=== PATIENT | female | born 1970 | race Caucasian/White ===

== ENCOUNTER 2017-02-09 08:53 | Day surgery (SDC) | payer BC ==
[2017-02-08 11:03] VITALS: BMI 18.8
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
[2017-02-09] MEDS ORDERED: oxyCODONE HCL 5 MG TABLET PO PRN (11:56)
[2017-02-09] MEDS ORDERED: ONDANSETRON 4 MG/2 ML VIAL IVPUSH PRN (11:56)
[2017-02-09] MEDS ORDERED: LACTATED RINGERS SOLUTION 1,000 ML IV SCH (12:00)
[2017-02-09] MEDS ORDERED: DEXAMETHASONE SOD PHOSPHATE 4 MG/1 ML VIAL ONE (12:12)
[2017-02-09] MEDS ORDERED: MIDAZOLAM HCL 2 MG/2 ML SINGLE DOSE VIAL ONE (12:12)
[2017-02-09] MEDS ORDERED: PROPOFOL 20 ML ONE (12:12)
[2017-02-09] MEDS ORDERED: LIDOCAINE HCL/PF 2% SDV 5ML VIAL ONE (12:12)
[2017-02-09] MEDS ORDERED: IBUPROFEN 800 MG/8 ML IJ IVPB ONE (13:11)
[2017-02-09 14:23] VITALS: TEMP 97.7
--- NOTE | 2017-02-09 14:25 | OP ---
Operative Note - Note: Operative Date: 02/09/17 Pre-Operative Diagnosis: Menometrorrhagia Operation: Hysteroscopy, D&C, polypectomy Findings: Fundal endometrial polyp ~1cm Post-Operative Diagnosis: Other (endometrial polyp) Surgeon: Stephon Dodge Anesthesiologist/SUBSORTER: Kelsie Ricketts Anesthesia: General Specimens Removed: Endometrial curettings, endometrial polyp Estimated Blood Loss (mls): 5 Drains, Volume Out (mls): 0 Blood Volume Replaced (mls): 0 Fluid Volume Replaced (mls): 400 Operative Report Dictated: Yes
[2017-02-09 14:37] VITALS: BP 103/53; PULSE 60
--- NOTE | 2017-02-10 14:44 | OP ---
DATE OF OPERATION: 02/09/2017 PREOPERATIVE DIAGNOSIS: Menometrorrhagia. POSTOPERATIVE DIAGNOSIS: Menometrorrhagia and endometrial polyp. SURGERY: Hysteroscopy, dilation and curettage, polypectomy. SURGEON: Al Bustamante MD ANESTHESIOLOGIST: Kelsie Ricketts MD ANESTHESIA: General. INTRAVENOUS FLUIDS: Crystalloid 400 mL. ESTIMATED BLOOD LOSS: 5 mL. COMPLICATIONS: None. PATHOLOGY: Endometrial curettings and uterine polyp. INTRAOPERATIVE FINDINGS: Examination under anesthesia revealed a small uterus with no pelvic or adnexal masses. Hysteroscopy revealed a small fundal endometrial polyp approximately 1 cm in size. There were no other lesions noted. The polyp was removed without complications. PROCEDURE: The patient was met preoperatively. Risks, benefits, and alternatives of surgery were discussed in detail. All questions were answered. The patient was then brought to the OR with the IV running. She was placed on the surgical table in the supine position. The anesthesia was achieved without difficulty. The patient was then placed in a dorsal lithotomy position using adjustable Raheem stirrups. She was examined under anesthesia with the findings as described above. The patient was then prepped and draped in the usual sterile fashion. A timeout procedure was conducted as per standard protocol. The surgeons then proceeded with the operation. A sterile speculum was introduced inside the vagina, with good visualization of the cervix. The cervix was grasped with a single-tooth tenaculum. No dilation of the cervical canal was necessary. A hysteroscope was gently introduced into the uterine cavity, with the findings as described above. The hysteroscope was used to remove the endometrial polyp without complications. The hysteroscope was then removed and sharp uterine curettage was performed. The tissue was sent to Pathology for evaluation. A hysteroscope was once again introduced into the uterine cavity, and a normal uterine cavity was noted with good hemostasis. All instruments were then removed from the patient. Sponge, lap, and instrument counts were correct. Good hemostasis was confirmed, and the patient was transferred to recovery room awake and in stable condition. AL BUSTAMANTE M.D. [id number]
--- NOTE | 2017-02-12 16:58 | PATH ---
Surgical Pathology Report Patient Name: MELONY RUSSELL [facility]. Rec. #: [id number] /Age/Gender: 1970 (Age: 46) / F Account: [id number] Location: [facility] SUR[facility]ICAL Taken: 02/09/2017 Received: 02/09/2017 Reported: 02/12/2017 Physicians: Stephon Dodge M.D. Specimen(s) Received ENDOMETRIAL CURETTINGS AND POLYPS Clinical History Vaginal bleeding Final Diagnosis ENDOMETRIAL CURETTINGS, POLYP, DILATATION AND CURETTAGE: POLYPOID PROLIFERATIVE ENDOMETRIUM SUGGESTIVE OF ENDOMETRIAL POLYP, LOWER UTERINE SEGMENT, SUPERFICIAL MYOMETRIUM AND BENIGN ENDOCERVICAL TISSUE. Electronically Signed Nani Andrade M.D. Gross Description Received in formalin labeled "endometrial curettings and polyp," is a 4.0 x 2.2 x 0.4 cm aggregate of funes soft tissue fragments admixed with blood clot. The formalin is filtered and the specimen is entirely submitted in 2 cassettes. /02/09/2017 saudi02/09/2017
== END 2017-02-09 15:13 | disposition home or self-care (01) ==
LOC: JASU-SURG 08:53
PROVIDERS: ATTEND Obstetrics & Gynecology
PROC: 0UB98ZX Excision of Uterus, Via Natural or Artificial Opening Endoscopic, Diagnostic (ICD-10-PCS; principal; 2017-02-09 09:00)
DX: N92.1 Excessive and frequent menstruation with irregular cycle (principal); N84.0 Polyp of corpus uteri
CPT/HCPCS: 84703; 86850; 86900; 86901; 88305-TC; 94760

== ENCOUNTER 2019-02-14 09:50 | Day surgery (SDC) | payer BC, OTHER ==
[2019-02-11 10:14] VITALS: BMI 18.3
[2019-02-14] MEDS ORDERED: PROPOFOL 20 ML ONE ×4 (13:13→13:14)
[2019-02-14] MEDS ORDERED: MIDAZOLAM HCL 2 MG/2 ML SINGLE DOSE VIAL ONE (13:14)
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
[2019-02-14] MEDS ORDERED: KETAMINE HCL 200 MG/20 ML VIAL ONE (13:37)
[2019-02-14] MEDS ORDERED: ceFAZolin SODIUM 1 GM VIAL IVPB ONE (13:38)
[2019-02-14] MEDS ORDERED: oxyCODONE HCL 5 MG TABLET PO PRN (13:39)
[2019-02-14] MEDS ORDERED: ONDANSETRON 4 MG/2 ML VIAL IVPUSH PRN (13:39)
[2019-02-14] MEDS ORDERED: LACTATED RINGERS SOLUTION 1,000 ML IV SCH (13:45)
[2019-02-14] MEDS ORDERED: HYDROmorphone HCl 2 MG/ML VIAL ONE (15:00)
[2019-02-14] MEDS ORDERED: oxyCODONE HCL 5 MG TABLET ONE (15:00)
--- NOTE | 2019-02-14 15:42 | OP ---
Operative Note - Note: Operative Date: 02/14/19 Pre-Operative Diagnosis: Menometrorrhagia Operation: Hysteroscopy, thermal endometrial ablation ([employer] Findings: Active vaginal bleeding prior to procedure. Normal small endometrial cavity. Post-Operative Diagnosis: Same as Pre-op Surgeon: Stephon Dodge Anesthesiologist/CAT CRACKER OPERATOR: Layne Fonseca Anesthesia: General Estimated Blood Loss (mls): 30 Blood Volume Replaced (mls): 0 Fluid Volume Replaced (mls): 750 Operative Report Dictated: Yes
[2019-02-14] MEDS ORDERED: oxyCODONE HCL 10 MG SUSTAINED ACTING TABLET PO ONE (16:58)
[2019-02-14] MEDS ORDERED: HYDROmorphone HCL CARPU-JECT 2 MG/1 ML DISP.SYRIN IVPUSH ONE (16:58)
[2019-02-14] MEDS ORDERED: HYDROmorphone HCl 2 MG/ML VIAL IVPUSH ONE (17:15)
[2019-02-14 17:33] VITALS: BP 111/68; PULSE 64; TEMP 98.1
--- NOTE | 2019-02-21 18:59 | OP ---
DATE OF OPERATION: 02/14/2019 PREOPERATIVE DIAGNOSIS: Menometrorrhagia. POSTOPERATIVE DIAGNOSIS: Menometrorrhagia. PROCEDURE: Hysteroscopy, thermal endometrial ablation via [employer] HTA. SURGEON: Stephon Dodge MD ANESTHESIOLOGIST: Layne Fonseca MD ANESTHESIA: General. COMPLICATIONS: None. ESTIMATED BLOOD LOSS: 30 mL (patient was bleeding prior to surgery. No intraoperative blood loss due to procedure). INTRAVENOUS FLUIDS: 750 mL. PATHOLOGY: None. FINDINGS: Examination under anesthesia revealed a small, retroverted uterus. Hysteroscopy revealed a small uterine cavity with irregular endometrium due to menstrual cycle and no lesions or masses noted. Good hemostasis was noted at the end of the procedure with no bleeding at the end of the procedure. PROCEDURE DESCRIPTION: The patient was met preoperatively. Risks, benefits, alternatives of surgery were discussed in details. All questions were answered. The consent form was reviewed and discussed. The patient verbalized her understanding and requested to proceed with surgery. The patient was brought to the OR with the IV running. She was placed on the surgical table in a supine position. The general anesthesia was achieved without difficulty. The patient was then placed in a dorsal lithotomy position using adjustable Raheem stirrups. She was examined under anesthesia with the findings as described above. The patient was then prepped and draped in the usual sterile fashion. A time-out was conducted as per standard protocol. A weighted speculum was then introduced inside the vagina with good visualization of the cervix. The cervix was grasped with a single-tooth tenaculum. The endocervical canal was dilated using graduated Garcia dilators. A hysteroscopy was then performed with findings as described above. The uterus appeared within normal limits. The uterine cavity was noted to have no lesions or masses. The endometrium was consistent with vaginal bleeding and was shedding. Endometrial ablation was then performed using [employer] HTA under direct vision and without complications. There was no intraoperative fluid level due to hysteroscopy. The patient was noted to have good hemostasis, and no further vaginal bleeding was observed at the end of the procedure. Once the procedure was completed, the hysteroscope was removed from the patient. All of the instruments were removed from the patient. Sponge, lap, and instrument counts were correct. The patient was returned to supine position. She was then transferred to recovery room in stable condition and awake. Liliane [id number]
== END 2019-02-14 17:20 | disposition home or self-care (01) ==
LOC: JASU-SURG 09:50
PROVIDERS: ATTEND Obstetrics & Gynecology
PROC: 0U5B8ZZ Destruction of Endometrium, Via Natural or Artificial Opening Endoscopic (ICD-10-PCS; principal; 2019-02-14 12:00)
DX: N92.1 Excessive and frequent menstruation with irregular cycle (principal)
CPT/HCPCS: 94760